=== PATIENT | male | born 1965 | race Asian ===

== ENCOUNTER 2017-03-24 22:21 | Emergency (ER) | payer OTHER ==
[~2017-03-24] VITALS: Ht 177.8 cm; Wt 95.5 kg
[2017-03-24 22:25] VITALS: Ht 177.8 cm; Wt 95.5 kg
--- NOTE | 2017-03-24 23:30 | ERA ---
ER Documentation Chief Complaint Date/Time DATE: 03/24/17 TIME: 23:27 Chief Complaint on and off chest pain for past 3 days HPI The patient is a 52-year-old male, presenting to the ER because of intermittent substernal and right-sided chest pain for 3 days, usually lasted for 2-3 minutes , worse with movement. He denies chest pain with exertion or vomiting or diaphoresis, denies dyspnea, abdominal pain, vomiting, dysuria. He complained of right ring finger pain and left elbow pain for the last few weeks, he denies any trauma. He does not smoke nor drink Past medical history: Dyslipidemia, hypothyroidism Past surgical history: None ROS All systems reviewed and are negative except as per history of present illness. Allergies Allergies: Coded Allergies: No Known Allergy (Unverified , 03/24/17) Physical Exam Vitals Vital Signs Date Time Temp Pulse Resp B/P Pulse Ox O2 Delivery O2 Flow Rate FiO2 03/25/17 05:53 55 17 115/67 100 Room Air 03/25/17 04:00 56 16 112/84 100 Room Air 03/25/17 01:00 58 16 106/71 100 Room Air 03/24/17 23:30 60 15 118/75 98 Room Air 03/24/17 22:25 97.6 64 18 134/80 99 Physical Exam Const: No acute distress. Head: Atraumatic. Eyes: Normal Conjunctiva. ENT: Normal External Ears, Nose and Mouth. Neck: Full range of motion. No meningismus. Resp: Clear to auscultation bilaterally. Cardio: Regular rate and rhythm, no murmurs. Abd: Soft, non distended, normal bowel sounds, non tender. Skin: No petechiae or rashes. Back: No midline or flank tenderness. Ext: Left elbow is with minimal edema, full range of motion. Right ring finger is edematous, not warm to touch, no erythema Neur: Awake and alert. No focal deficit Psych: Normal Mood and Affect. Results 24 hrs Laboratory Tests Test 03/25/17 04:26 Troponin I < 0.012ng/ml Current Medications Medications (Trade) Dose Ordered Sig/Corina Route PRN Reason Start Time Stop Time Status Last Admin Dose Admin Ketorolac Tromethamine (Toradol) 30 mg ONCE STAT IV 03/25/17 00:04 03/25/17 00:05 DC 03/25/17 00:31 Procedures/MDM [place] [id number] Radiology Main Line: [phone] DIAGNOSTIC IMAGING REPORT Patient: CHARLI MAGANA : 1965 Age: 52 Sex: M MR #: [id number] DOS: 03/25/17 0004 Ordering MD: TONY ORO MD Location: E/R Room/Bed: PROCEDURE: LEFT ELBOW - 3 VIEWS CLINICAL INDICATION: 52-year-old with left elbow pain. TECHNIQUE: AP, lateral and oblique views of the left elbow were obtained. The images were viewed on a PACS workstation. COMPARISON: None. FINDINGS: There is mild elevation of the anterior fat pad. There is no evidence for an acute fracture or dislocation. The bone marrow mineralization is within normal limits. The joint space appears preserved. No radiopaque foreign body is seen. IMPRESSION: 1. No acute fracture or dislocation. 2. Questionable joint effusion. .Cristobal Joseph MD, MD Date Time Electronically viewed and signed by .Cristobal Joseph MD, MD on 03/25/2017 02:09 .M/ CC: TONY ORO MD [place] [id number] Radiology Main Line: [phone] DIAGNOSTIC IMAGING REPORT Patient: CHARLI MAGANA : 1965 Age: 52 Sex: M MR #: [id number] DOS: 03/25/17 0004 Ordering MD: TONY ORO MD Location: E/R Room/Bed: PROCEDURE: CHEST - 1 VIEW CLINICAL INDICATION: 52-year-old male with chest pain. TECHNIQUE: A single frontal AP portable view of the chest was performed. The images were reviewed on a PACS workstation. COMPARISON: None. FINDINGS: The cardiomediastinal silhouette has a normal appearance. There is no evidence for an infiltrate. There is no evidence for congestive heart failure. There is no evidence for pneumothorax. The osseous structures are intact. IMPRESSION: No evidence for active cardiopulmonary disease. .Cristobal Joseph MD, MD Date Time Electronically viewed and signed by .Cristobal Joseph MD, MD on 03/25/2017 02:07 .M/ CC: TONY ORO MD [place] [id number] Radiology Main Line: [phone] DIAGNOSTIC IMAGING REPORT Patient: CHARLI MAGANA : 1965 Age: 52 Sex: M MR #: [id number] DOS: 03/25/17 0110 Ordering MD: TONY ORO MD Location: E/R Room/Bed: PROCEDURE: RIGHT FOURTH DIGIT - 3 VIEWS CLINICAL INDICATION: 52-year-old with swollen right fourth digit. TECHNIQUE: AP, lateral and oblique views of the right fourth digit were obtained. The images reviewed on a PACS workstation. COMPARISON: None. FINDINGS: The bones of the fourth digit appear intact, with no evidence of fracture, dislocation, or subluxation. The joint spaces are preserved. Bone mineralization is within normal limits. No radiopaque foreign body is seen. Diffuse soft tissue swelling is noted. IMPRESSION: 1. No acute fracture or dislocation. 2. Soft tissue swelling. .Cristobal Joseph MD, MD Date Time Electronically viewed and signed by .Cristobal Joseph MD, MD on 03/25/2017 02:10 .M/ CC: TONY ORO MD EK:05 PM read by emergency physician Rate/Rhythm: Normal Sinus Rhythm 60 beats/min QRS, ST, T-waves: No ST elevation, no T inversion, left atrial enlargement Impression: Abnormal EKG EK:05 PM read by emergency physician Rate/Rhythm: Sinus bradycardia 54 beats/min QRS, ST, T-waves: No ST elevation, no T inversion Impression: Abnormal EKG MEDICAL MAKING DECISION: The patient is a 52-year-old male, presenting with acute chest pain of unclear etiology, acute left elbow pain, acute right fourth finger pain of unclear etiology. He was treated with Toradol 30 mg IV for pain with good response. The differential diagnoses considered include but are not limited to acute coronary syndrome, acute myocardial infarction, pericarditis, pulmonary embolism , aortic dissection, pneumonia, pleural effusion, pneumothorax, GERD, chest wall pain. Departure Diagnosis: Primary Impression: Chest pain Additional Impressions: Left elbow pain Finger pain, right Condition: Good Comments The patient presents with chest pain and I considered pulmonary embolism, aortic dissection, pneumothorax among other diagnoses. Evaluation for acute coronary syndrome was performed. The HEART score (www.mdcalc.com) was utilized for risk stratification and found to be <= 3. Repeat EKG and troponin @ 3 hours were unchanged. Based on this evaluation the patients risk of major adverse cardiac events is <1%. Shared decision making occurred with patient and the decision has been made to discharge the patient for outpatient evaluation and functional study within 72 hours. The patient's blood pressure was elevated (>120/80) but appears stable without evidence of hypertension emergency or urgency. The patient was counseled about the risks of hypertension and urged to pursue outpatient monitoring and therapy within a week with their primary care physician. TONY ORO MD March 24, 2017 23:30
[2017-03-25] MEDS ORDERED: KETOROLAC 30 MG INJ IV STA (00:04)
[2017-03-25 00:45] LABS: ADD SCAN DIFF NO; BASOPHIL # 0.1 10^3/ul (0.0-0.1); BASOPHILS % 0.6 % (0.0-2.0); EOSINOPHILS # 0.3 10^3/ul (0.0-0.5); EOSINOPHILS % 3.4 % (0.0-7.0); HEMATOCRIT 38.4 % (42.0-52.0); HEMOGLOBIN 12.5 g/dl (14.0-18.0); MEAN CORPUSCULAR HEMOGLOBIN 30.1 pg (29.0-33.0); MEAN CORPUSCULAR HGB CONC 32.6 g/dl (32.0-37.0); MEAN CORPUSCULAR VOLUME 92.5 fl (82.0-101.0); MEAN PLATELET VOLUME 9.1 fl (7.4-10.4); MONOCYTE # 0.8 10^3/ul (0.3-0.9); MONOCYTES % 8.2 % (0.0-11.0); NEUTROPHIL # 5.5 10^3/ul (1.6-7.5); NEUTROPHILS % 56.2 % (39.0-77.0); PLATELET COUNT 248 10^3/UL (140-415); RED BLOOD COUNT 4.15 10^6/ul (4.70-6.10); RED CELL DISTRIBUTION WIDTH 12.2 % (11.5-14.5); WHITE BLOOD COUNT 9.7 10^3/ul (4.8-10.8)
[2017-03-25 01:03] LABS: ANION GAP 14 (8-16); BLOOD UREA NITROGEN 20 mg/dl (7-20); CALCIUM 8.9 mg/dl (8.4-10.2); CARBON DIOXIDE 28 mmol/L (21-31); CHLORIDE 104 mmol/L (97-110); CREATININE 0.87 mg/dl (0.61-1.24); GLUCOSE 103 mg/dl (70-220); POTASSIUM 4.3 mmol/L (3.5-5.1); SODIUM 142 mmol/L (135-144)
[2017-03-25 01:05] LABS: INR 0.95; PROTIME 12.7 Sec (12.2-14.2)
[2017-03-25 01:06] LABS: PARTIAL THROMBOPLASTIN TIME 28.7 Sec (25.0-35.0)
[2017-03-25 01:46] LABS: TROPONIN-I < 0.012 ng/ml (0.00-0.12)
--- NOTE | 2017-03-25 02:08 | RADRPT ---
PROCEDURE: CHEST - 1 VIEW CLINICAL INDICATION: 52-year-old male with chest pain. TECHNIQUE: A single frontal AP portable view of the chest was performed. The images were reviewed on a PACS workstation. COMPARISON: None. FINDINGS: The cardiomediastinal silhouette has a normal appearance. There is no evidence for an infiltrate. There is no evidence for congestive heart failure. There is no evidence for pneumothorax. The osseou s structures are intact. IMPRESSION: No evidence for active cardiopulmonary disease. .Cristobal Joseph MD, MD Date Time Electronically viewed and signed by .Cristobal Joseph MD, on 03/25/2017 02:07 .Luis Alfredo/
--- NOTE | 2017-03-25 02:09 | RADRPT ---
PROCEDURE: LEFT ELBOW - 3 VIEWS CLINICAL INDICATION: 52-year-old with left elbow pain. TECHNIQUE: AP, lateral and oblique views of the left elbow were obtained. The images were viewed on a PACS workstation. COMPARISON: None. FINDINGS: There is mild elevation of the anterior fat pad. There is no evidence for an acute fracture or disl ocation. The bone marrow mineralization is within normal limits. The joint space appears preserved . No radiopaque foreign body is seen. IMPRESSION: 1. No acute fracture or dislocation. 2. Questionable joint effusion. .Cirstobal Joseph MD, Date Time Electronically viewed and signed by .Cristobal Joseph MD, on 03/25/2017 02:09 .Luis Alfredo/
--- NOTE | 2017-03-25 02:10 | RADRPT ---
PROCEDURE: RIGHT FOURTH DIGIT - 3 VIEWS CLINICAL INDICATION: 52-year-old with swollen right fourth digit. TECHNIQUE: AP, lateral and oblique views of the right fourth digit were obtained. The images revie wed on a PACS workstation. COMPARISON: None. FINDINGS: The bones of the fourth digit appear intact, with no evidence of fracture, dislocation, or subluxati on. The joint spaces are preserved. Bone mineralization is within normal limits. No radiopaque fore ign body is seen. Diffuse soft tissue swelling is noted. IMPRESSION: 1. No acute fracture or dislocation. 2. Soft tissue swelling. .Cristobal Joseph MD, MD Date Time Electronically viewed and signed by .Cristobal Joseph MD, MD on 03/25/2017 02:10 .Luis Alfredo/
[2017-03-25 05:53] VITALS: BP 115/67; PULSE 55; RESP 17
== END 2017-03-25 05:59 | disposition home or self-care (01) ==
LOC: E/R 22:21
DX: R07.9 Chest pain, unspecified (principal); M25.522 Pain in left elbow; M79.644 Pain in right finger(s); E03.9 Hypothyroidism, unspecified
CPT/HCPCS: 36415; 71010; 73080; 73140; 80048; 84484; 85025; 85610; 85730; 93005; 96374; 99285; J1885